=== PATIENT | female | born 1965 | race Caucasian/White ===

== ENCOUNTER 2016-05-20 05:07 | Emergency (ER) | payer OTHER ==
--- NOTE | 2016-05-20 08:59 | ED CLINICAL REPORT ---
Clinical Report - Physicians/Mid Levels [facility] [address] [place] [address] 05/20/2016 5:08 Patient: FARIDA DODGE Time Seen: 05:32 May 20 2016. Arrived- By ambulance. Historian- patient and EMS personnel. CPT: ER phys charges level 3 (#[id number]). HISTORY OF PRESENT ILLNESS Chief Complaint: CHRONIC BACK PAIN. 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 It is described as being moderate in degree and in the area of the left lower lumbar spine and left gluteus. The quality is noted to be sharp, aching, "pain" and similar to prior episodes. No bladder dysfunction, bowel dysfunction, sensory loss or motor loss. Patient denies an injury. No other injury. Similar symptoms previously: Several times, milder. REVIEW OF SYSTEMS No fever, chills, eye irritation, difficulty with urination or urinary frequency. No hematuria, skin rash, sore throat, cough or difficulty breathing. No chest pain, abdominal pain, nausea, vomiting or diarrhea. No black stools. All systems otherwise negative, except as recorded above. PAST HISTORY Has had back injury. She has had many prior episodes of back pain (Has seen PCP and x-ray done showing DJD but no MRI or CT scan at this time yest). Previously diagnosed as degenerative disc disease. No previous back surgery. Medications: None. None. Allergies: None. Tetanus Immune Globulin. SOCIAL HISTORY Heavy tobacco smoker (cigarette)- 1 pack per day. History of drug use: methamphetamines. ADDITIONAL NOTES The nursing notes have been reviewed. PHYSICAL EXAM Vital Signs: 05/20/2016 05:09 BP: 171/98. HR: 94. RR: 18. O2 saturation: 100%. Temp: 97.8 F. Pain level now: 10/10. Appearance: Alert. No acute distress. HEENT: Normal external inspection. ENT: Pharynx normal. Neck: Normal inspection. Neck nontender. Painless ROM. CVS: Heart sounds normal. Pulses normal. Respiratory: No respiratory distress. Breath sounds normal. Abdomen: Soft and nontender. Bowel sounds normal. Back: Soft tissue tenderness in the right lower and left lower lumbar area. Skin: Skin warm. Normal skin color. No rash. Extremities: Extremities exhibit normal ROM. Extremities nontender. Neuro: Oriented X 3. Mood/affect normal. No motor deficit. No sensory deficit. Reflexes normal. (No saddle paresthesias). PROGRESS AND PROCEDURES Course of Care: Toradol 60 mg IM Patient is stable. Symptoms better. Patient/family counseled. Disposition: Discharged. Condition: stable. CLINICAL IMPRESSION Acute left sided lumbar radiculopathy. No sensory loss or motor deficit. Substance abuse problems: abuse of opiates, methamphetamine and hallucinogens. INSTRUCTIONS Apply ice for 15-20 minutes three times a day for one days followed by moist heat. No strenuous activity. Prescription Medications: Skelaxin 800 mg: Take 1 orally every 6 hours as needed for muscle spasm. Dispense thirty (30). No refills. Substitution is permissible. OTC Medications: Motrin (available over the counter): take according to label instructions. Understanding of the discharge instructions verbalized by patient. Follow-up with: [facility], , , [address], , [place], [id number] Follow up in three days. Call for the next available appointment. (Electronically signed by Barrera Fagan MD 05/23/2016 12:18) Adddottie for FARIDA DODGE VisitID: [id number] Date: 05/20/2016 05/20/2016 10:23 PT.given bus pass and a warm blanket. (Electronically signed by Felicity Castanon1 - 05/20/2016 10:23)
--- NOTE | 2016-05-20 08:59 | ED ORDER SUMMARY ---
..... Patient: FARIDA DODGE OrderSheet [facility] VisitID: [id number] [place] [address] 50y, F Registration Date/Time: 05/20/2016 ORDER SHEET Weight: 86.1 kg (stated) Allergies: None, Tetanus Immune Globulin GENERAL ORDERS: Urine Drug Screen Urgent (06:03 05/20/2016 Ana Nelson.NQuan verbal order read back to Hany GONSALEZ) (Ack 6:05 Everton GARNER Manager Utilization) (7:01 Gilbert Nelson.NQuan) MEDICATION ORDERS: Toradol IM 60 mg (NOW) (05:35 05/20/2016 Hany GONSALEZ) (Ack 5:38 Ana R.N.) (5:52 Ana R.N.) Ativan IM 1.5 mg (NOW) (05:36 05/20/2016 Hany GONSALEZ) (Ack 5:38 Ana R.N.) (Cancelled: Other8:58 Hany GONSALEZ) IV FLUIDS: ORDER SHEET NOTES: [Electronically signed by Marcell Bunch R.N. (18:32 05/20/2016)] [Electronically signed by Barrera Fagan MD (12:18 05/23/2016)] [Electronically locked/signed by Marcell Bunch R.N. (18:32 05/20/2016)]
--- NOTE | 2016-05-20 08:59 | ED NURSING NOTES ---
Clinical Report - Nurses [facility] [place] [address] 05/20/2016 5:08 Patient: FARIDA DODGE TRIAGE Triage time 05:09. Acuity: LEVEL 4. Chief Complaint: BACK PAIN. Alert. SEPSIS SCREEN: Sepsis Screen: negative. Negative (no infection suspected/documented). --05:12 Pj Kohli R.N. 05:09 05/20/16. BP: 171/98. HR: 94 (normal rate). RR: 18 (regular, unlabored and normal). O2 saturation: 100% on room air. Temp: 97.8 F (oral). Pain level now: 10/10. Additional comments: Pt is frazzled, telling story about "hold up at motel" to police. . --05:12 Pj Kohli R.N. Weight: 86.1 kg stated. Height/Length: 66 inches Per Patient. BMI: 30.7. --05:08 Marcell Bunch R.N. Medications None. --05:12 Pj Kohli R.N. None. --05:13 Pj Kohli R.N. Medication/allergy information source: the patient. --05:12 Pj Kohli R.N. Allergies None. Tetanus Immune Globulin. --05:13 Pj Kohli R.N. The following entry was struck by Pj Kohli R.N., 05:14 (05/20/16) Reason - other. <<STRICKEN ENTRY-- No Known Drug Allergy. --05:12 Pj Kohli R.N. --END STRIKE>>. History Arrived by EMS. Historian: patient. Unaccompanied. Primary physician (Gayle Saucedo at [facility]). Onset. (about 2 days ago). No history of recent trauma. Treatment FLORAL ASSOCIATE: None. SOCIAL HX: Heavy tobacco smoker (cigarette)- less than 1 pack per day. 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 The patient has not traveled outside the [place] The patient was not exposed to MRSA. No infectious disease exposure. ABUSE ASSESSMENT: Abuse assessment: The patient was asked "Do you feel safe in your home?" and "Has anyone hurt you or threatened to hurt you?". No report of abuse. SELF HARM ASSESSMENT: A self harm assessment was performed. The patient answered "no" to the question "Do you have thoughts of harming or killing yourself?" and "Have you recently had thoughts about harming or killing others?". FALL RISK ASSESSMENT: Fall risk assessment completed. No fall risk identified. NUTRITIONAL RISK ASSESSMENT: The nutritional risk assessment revealed no deficiencies. FUNCTIONAL ASSESSMENT: Functional assessment: no impairments noted. LEARNING NEEDS ASSESSMENT: The learning needs assessment revealed no barriers. SKIN INTEGRITY ASSESSMENT: Skin integrity risk assessment completed. No skin integrity risk identified. --05:12 Pj Kohli R.N. PROBLEMS: Substance Abuse. Cellulitis. Abscess. Hepatitis. Hepatitis C carrier. Tubal ligation. --05:14 Pj Kohli R.N. ADDITIONAL SURGERIES: . Tubal Ligation. --05:14 Pj Kohli R.N. Assessment GENERAL / NEURO / PSYCH: Alert. Oriented X 4. [place] Coma Scale: 15- eyes open spontaneously (4); best verbal response- oriented x 4 (5); best motor response- obeys commands (6). Patient appears calm and cooperative. RESPIRATORY: Respirations not labored. SKIN: Skin is warm and dry. --05:12 Pj Kohli R.N. Interventions ID band on patient. To treatment room. --05:12 Pj Kohli R.N. NURSING PROGRESS NOTES The initial plan of care for this patient has been created This plan of care was discussed with the patient. Reassurance given to the patient. Two patient identifiers checked. Call light placed in reach. Side rails up x 1. Bed placed in lowest position. Brakes of bed on. Patient ready for evaluation- ED physician notified. --05:13 Pj Kohli R.N. 05:52 05/20/2016 Toradol (Ketorolac Tromethamine) IM 60 mg given. Given in the left ventral gluteus. Allergies verified and confirmed 5 rights. --05:52 Pj Kohli R.N. 06:54 Patient assisted to restroom via wc. --07:00 Surinder Rodriguez R.N. 06:58. Patient ID band checked for patient name and birthdate: patient confirmed. Clean catch urine collected with return of lachelle-colored clear urine; sample sent to lab for urinalysis. Specimen labeled in the presence of the patient. --07:01 Surinder Rodriguez R.N. 07:30 05/20/16. Patient informed about reason for wait and about plan of care. --07:30 Marcell Bunch R.N. 07:33 05/20/16. --07:33 Marcell Bunch R.N. 07:33 05/20/16. BP: 137/91. HR: 92. RR: 18. O2 saturation: 100% on room air. Pain level now: 01/21. --07:33 Marcell Bunch R.N. 08:38 05/20/16. ( Gave pt snack, juice and water. Pt is sleeping.). --08:38 Marcell Bunch R.N. DISPOSITION / DISCHARGE 09:14 05/20/16. Condition at departure: improved. The goals identified in the patient's plan of care were met. No learning barriers present. Discharge instructions provided and reviewed with the patient. Reviewed warnings. Reviewed medication(s). Treatments reviewed. Patient verbalized understanding. Written instructions provided in Romansh. The patient was discharged by the physician. She was discharged home and unaccompanied at time of discharge. She left the Emergency Department ambulatory and via private vehicle. FALL RISK ASSESSMENT: Fall risk assessment completed. No fall risk identified. --09:15 Marcell Bunch R.N. 09:14 05/20/16. BP: 166/88. HR: 72. RR: 14. O2 saturation: 100% on room air. Temp: 98.2 F (oral). --09:15 Marcell Bunch R.N. 09:15 05/20/16. Departure time: 09:15. --09:15 Marcell Bunch R.N. 09:35 05/20/16. ( Pt trying to coordinate ride). --09:35 Marcell Bunch R.N. Locked/Released at 05/20/2016 18:32 by Marcell Bunch R.N.
--- NOTE | 2016-05-20 08:59 | ED CLINICAL REPORT ---
Clinical Report - Physicians/Mid Levels [facility] [address] [place] [address] 05/20/2016 5:08 Patient: FARIDA DODGE Time Seen: 05:32 May 20 2016. Arrived- By ambulance. Historian- patient and EMS personnel. CPT: ER phys charges level 3 (#[id number]). HISTORY OF PRESENT ILLNESS Chief Complaint: CHRONIC BACK PAIN. Onset- about 1 months DEPUTY K 9 and it is still present (worse today primarily over a point on the left buttock.). It is described as being moderate in degree and in the area of the left lower lumbar spine and left gluteus. The quality is noted to be sharp, aching, "pain" and similar to prior episodes. No bladder dysfunction, bowel dysfunction, sensory loss or motor loss. Patient denies an injury. No other injury. Similar symptoms previously: Several times, milder. REVIEW OF SYSTEMS No fever, chills, eye irritation, difficulty with urination or urinary frequency. No hematuria, skin rash, sore throat, cough or difficulty breathing. No chest pain, abdominal pain, nausea, vomiting or diarrhea. No black stools. All systems otherwise negative, except as recorded above. PAST HISTORY Has had back injury. She has had many prior episodes of back pain (Has seen PCP and x-ray done showing DJD but no MRI or CT scan at this time yest). Previously diagnosed as degenerative disc disease. No previous back surgery. Medications: None. None. Allergies: None. Tetanus Immune Globulin. SOCIAL HISTORY Heavy tobacco smoker (cigarette)- 1 pack per day. History of drug use: methamphetamines. ADDITIONAL NOTES The nursing notes have been reviewed. PHYSICAL EXAM Vital Signs: 05/20/2016 05:09 BP: 171/98. HR: 94. RR: 18. O2 saturation: 100%. Temp: 97.8 F. Pain level now: 10/10. Appearance: Alert. No acute distress. HEENT: Normal external inspection. ENT: Pharynx normal. Neck: Normal inspection. Neck nontender. Painless ROM. CVS: Heart sounds normal. Pulses normal. Respiratory: No respiratory distress. Breath sounds normal. Abdomen: Soft and nontender. Bowel sounds normal. Back: Soft tissue tenderness in the right lower and left lower lumbar area. Skin: Skin warm. Normal skin color. No rash. Extremities: Extremities exhibit normal ROM. Extremities nontender. Neuro: Oriented X 3. Mood/affect normal. No motor deficit. No sensory deficit. Reflexes normal. (No saddle paresthesias). PROGRESS AND PROCEDURES Course of Care: Toradol 60 mg IM Patient is stable. Symptoms better. Patient/family counseled. Disposition: Discharged. Condition: stable. CLINICAL IMPRESSION Acute left sided lumbar radiculopathy. No sensory loss or motor deficit. Substance abuse problems: abuse of opiates, methamphetamine and hallucinogens. INSTRUCTIONS Apply ice for 15-20 minutes three times a day for one days followed by moist heat. No strenuous activity. Prescription Medications: Skelaxin 800 mg: Take 1 orally every 6 hours as needed for muscle spasm. Dispense thirty (30). No refills. Substitution is permissible. OTC Medications: Motrin (available over the counter): take according to label instructions. Understanding of the discharge instructions verbalized by patient. Follow-up with: [facility], , , [address], , [place], [id number] Follow up in three days. Call for the next available appointment. (Electronically signed by Barrera Fagan MD 05/23/2016 12:18) Adddottie for FARIDA DODGE VisitID: [id number] Date: 05/20/2016 05/20/2016 10:23 PT.given bus pass and a warm blanket. (Electronically signed by Felicity Castanon1 - 05/20/2016 10:23)
--- NOTE | 2016-05-20 08:59 | ED ORDER SUMMARY ---
..... Patient: FARIDA DODGE OrderSheet [facility] VisitID: [id number] [place] [address] 50y, F Registration Date/Time: 05/20/2016 ORDER SHEET Weight: 86.1 kg (stated) Allergies: None, Tetanus Immune Globulin GENERAL ORDERS: Urine Drug Screen Urgent (06:03 05/20/2016 Ana Nelson.NQuan verbal order read back to Hany GONSALEZ) (Ack 6:05 Everton GARNER Activities Aide) (7:01 Gilbert Nelson.NQuan) MEDICATION ORDERS: Toradol IM 60 mg (NOW) (05:35 05/20/2016 Hany GONSALEZ) (Ack 5:38 Ana R.N.) (5:52 Ana R.N.) Ativan IM 1.5 mg (NOW) (05:36 05/20/2016 Hany GONSALZE) (Ack 5:38 Ana R.N.) (Cancelled: Other8:58 Hany GONSALEZ) IV FLUIDS: ORDER SHEET NOTES: [Electronically signed by Marcell Bunch R.N. (18:32 05/20/2016)] [Electronically signed by Barrera Fagan MD (12:18 05/23/2016)] [Electronically locked/signed by Marcell Bunch R.N. (18:32 05/20/2016)]
--- NOTE | 2016-05-23 12:18 | ED MAR SUMMARY ---
..... Medication Administration Record [facility] [address] [place] [address] Patient: FARIDA DODGE Visit ID: [id number] 50y, F Weight: 86.1 kg Height/Length: 66 in BMI: 30.7 ALLERGIES: None, Tetanus Immune Globulin Given 05:52 05/20/2016 Pj Kohli, RQuanNQuan Medication Administered: TORADOL [IM] (KETOROLAC TROMETHAMINE), Dose: 60 mg IM. Medication Ordered: Toradol IM 60 mg (NOW).
--- NOTE | 2016-05-23 12:18 | ED DISCHARGE INSTRUCTIONS ---
Patient: FARIDA DODGE General Instructions [facility] VisitID: [id number] [address], [place] [address] 50y, F Registration Date/Time: 05/20/2016 Acute left sided lumbar radiculopathy. No sensory loss or motor deficit. Substance abuse problems: abuse of opiates, methamphetamine and hallucinogens. INSTRUCTIONS Apply ice for 15-20 minutes three times a day for one days followed by moist heat. No strenuous activity. Prescription Medications: Skelaxin 800 mg: Take 1 orally every 6 hours as needed for muscle spasm. Dispense thirty (30). No refills. Substitution is permissible. OTC Medications: Motrin (available over the counter): take according to label instructions. Understanding of the discharge instructions verbalized by patient. [facility]: [facility], , , [address], , [place], [address] Follow up in three days. Call for the next available appointment. ADDITIONAL INFORMATION Sciatica Sciatica ("Lumbar Radiculopathy") causes a pain that spreads from the lower back down into the buttock, hip and leg. Sometimes leg pain can occur without any back pain. Sciatica is due to irritation or pressure on a spinal nerve as it comes out of the spinal canal. This is most often due to a bulge or rupture of a nearby spinal disk (the cartilage cushion between each spinal bone), which presses on a nearby nerve. Other causes include spinal stenosis (narrowing of the spinal canal) and spasm of the pyriform muscle (a muscle in the buttocks that the sciatic nerve passes through). Sciatica may begin after a sudden twisting/bending force (such as in a car accident), or sometimes after a simple awkward movement. In either case, muscle spasm is commonly present and contributes to the pain. The diagnosis of sciatica is made from the symptoms and physical exam. Unless you had a physical injury (such as a car accident or fall), X-rays are usually not ordered for the initial evaluation of sciatica because the nerves and disks cannot be seen on an x-ray. If signs of a compressed nerve are present (for example, loss of tendon reflex or strength in the leg), an MRI (magnetic resonance imaging) scan will need to be scheduled as an outpatient. Most sciatica (80-90%) gets better with medicine, exercise, physical therapy. If symptoms continue after at least three months of medical treatment, surgery may be considered. Home Care: You may need to stay in bed the first few days. But, as soon as possible, begin sitting or walking to avoid problems with prolonged bed rest. When in bed, try to find a position of comfort. A firm mattress is best. Try lying flat on your back with pillows under your knees. You can also try lying on your side with your knees bent up towards your chest and a pillow between your knees. Avoid prolonged sitting. This puts more stress on the lower back than standing or walking. Some persons find relief with heat (hot shower, hot bath or heating pad) and massage, while others prefer cold packs (crushed or cubed ice in a plastic bag, wrapped in a towel). Try both and use the method that feels best for 20 minutes several times a day. You may use acetaminophen (Tylenol) or ibuprofen (Motrin, Advil) to control pain, unless another pain medicine was prescribed. [ NOTE: If you have chronic liver or kidney disease or ever had a stomach ulcer or GI bleeding, talk with your doctor before using these medicines.] Be aware of safe lifting methods and do not lift anything over 15 pounds until all the pain is gone. Follow Up with your doctor or this facility if your symptoms do not start to improve after one week. Physical therapy or further testing may be needed. [NOTE: If X-rays were taken, they will be reviewed by a radiologist. You will be notified of any new findings that may affect your care.] Get Prompt Medical Attention if any of the following occur: Pain becomes worse, not controlled by the prescribed medicine Weakness or numbness in one or both legs Numbness in the groin, genital area Loss of bowel or bladder control You have been given the following additional information: Back Pain W/ Sciatica No strenuous activity. (Electronically signed by Barrera Fagan MD 05/23/2016 12:18)
--- NOTE | 2016-05-23 12:18 | ED MED RECONCILIATION SUMMARY ---
Patient: FARIDA DODGE Medication Reconciliation Report [facility] VisitID: [id number] [address] [place] [address] 50y, F Registration Date/Time: 05/20/2016 Weight: 86.1 kg Height/Length: 66 in. BMI: 30.7 ALLERGIES: None, Tetanus Immune Globulin The patient's Home Medications are listed below: NONE. The source(s) of the original Home Medication information: patient The following Medications were given to the patient in the Emergency Department: Toradol [IM] IM 60 mg, administered: 05/20/2016 5:52:00 AM The following Medications were prescribed to the patient: Motrin (available over the counter): take according to label instructions. -- Barrera Fagan MD Skelaxin 800 mg: Take 1 orally every 6 hours as needed for muscle spasm. Dispense thirty (30). No refills. Substitution is permissible. -- Barrera Fagan MD
--- NOTE | 2016-05-23 12:18 | ED MAR SUMMARY ---
..... Medication Administration Record [facility] [address] [place] [address] Patient: FARIDA DODGE Visit ID: [id number] 50y, F Weight: 86.1 kg Height/Length: 66 in BMI: 30.7 ALLERGIES: None, Tetanus Immune Globulin Given 05:52 05/20/2016 Pj Kohli, RQuanNQuan Medication Administered: TORADOL [IM] (KETOROLAC TROMETHAMINE), Dose: 60 mg IM. Medication Ordered: Toradol IM 60 mg (NOW).
--- NOTE | 2016-05-23 12:18 | ED MED RECONCILIATION SUMMARY ---
Patient: FARIDA DODGE Medication Reconciliation Report [facility] VisitID: [id number] [address] [place] [address] 50y, F Registration Date/Time: 05/20/2016 Weight: 86.1 kg Height/Length: 66 in. BMI: 30.7 ALLERGIES: None, Tetanus Immune Globulin The patient's Home Medications are listed below: NONE. The source(s) of the original Home Medication information: patient The following Medications were given to the patient in the Emergency Department: Toradol [IM] IM 60 mg, administered: 05/20/2016 5:52:00 AM The following Medications were prescribed to the patient: Motrin (available over the counter): take according to label instructions. -- Barrera Fagan MD Skelaxin 800 mg: Take 1 orally every 6 hours as needed for muscle spasm. Dispense thirty (30). No refills. Substitution is permissible. -- Barrera Fagan MD
--- NOTE | 2016-05-23 12:18 | ED DISCHARGE INSTRUCTIONS ---
Patient: FARIDA DODGE General Instructions [facility] VisitID: [id number] [address], [place] [address] 50y, F Registration Date/Time: 05/20/2016 Acute left sided lumbar radiculopathy. No sensory loss or motor deficit. Substance abuse problems: abuse of opiates, methamphetamine and hallucinogens. INSTRUCTIONS Apply ice for 15-20 minutes three times a day for one days followed by moist heat. No strenuous activity. Prescription Medications: Skelaxin 800 mg: Take 1 orally every 6 hours as needed for muscle spasm. Dispense thirty (30). No refills. Substitution is permissible. OTC Medications: Motrin (available over the counter): take according to label instructions. Understanding of the discharge instructions verbalized by patient. Follow-up with: [facility], , , [address], , [place], [address] Follow up in three days. Call for the next available appointment. ADDITIONAL INFORMATION Sciatica Sciatica ("Lumbar Radiculopathy") causes a pain that spreads from the lower back down into the buttock, hip and leg. Sometimes leg pain can occur without any back pain. Sciatica is due to irritation or pressure on a spinal nerve as it comes out of the spinal canal. This is most often due to a bulge or rupture of a nearby spinal disk (the cartilage cushion between each spinal bone), which presses on a nearby nerve. Other causes include spinal stenosis (narrowing of the spinal canal) and spasm of the pyriform muscle (a muscle in the buttocks that the sciatic nerve passes through). Sciatica may begin after a sudden twisting/bending force (such as in a car accident), or sometimes after a simple awkward movement. In either case, muscle spasm is commonly present and contributes to the pain. The diagnosis of sciatica is made from the symptoms and physical exam. Unless you had a physical injury (such as a car accident or fall), X-rays are usually not ordered for the initial evaluation of sciatica because the nerves and disks cannot be seen on an x-ray. If signs of a compressed nerve are present (for example, loss of tendon reflex or strength in the leg), an MRI (magnetic resonance imaging) scan will need to be scheduled as an outpatient. Most sciatica (80-90%) gets better with medicine, exercise, physical therapy. If symptoms continue after at least three months of medical treatment, surgery may be considered. Home Care: You may need to stay in bed the first few days. But, as soon as possible, begin sitting or walking to avoid problems with prolonged bed rest. When in bed, try to find a position of comfort. A firm mattress is best. Try lying flat on your back with pillows under your knees. You can also try lying on your side with your knees bent up towards your chest and a pillow between your knees. Avoid prolonged sitting. This puts more stress on the lower back than standing or walking. Some persons find relief with heat (hot shower, hot bath or heating pad) and massage, while others prefer cold packs (crushed or cubed ice in a plastic bag, wrapped in a towel). Try both and use the method that feels best for 20 minutes several times a day. You may use acetaminophen (Tylenol) or ibuprofen (Motrin, Advil) to control pain, unless another pain medicine was prescribed. [ NOTE: If you have chronic liver or kidney disease or ever had a stomach ulcer or GI bleeding, talk with your doctor before using these medicines.] Be aware of safe lifting methods and do not lift anything over 15 pounds until all the pain is gone. Follow Up with your doctor or this facility if your symptoms do not start to improve after one week. Physical therapy or further testing may be needed. [NOTE: If X-rays were taken, they will be reviewed by a radiologist. You will be notified of any new findings that may affect your care.] Get Prompt Medical Attention if any of the following occur: Pain becomes worse, not controlled by the prescribed medicine Weakness or numbness in one or both legs Numbness in the groin, genital area Loss of bowel or bladder control You have been given the following additional information: Back Pain W/ Sciatica No strenuous activity. (Electronically signed by Barrera Fagan MD 05/23/2016 12:18)
== END 2016-05-20 09:15 | disposition home or self-care (01) ==
LOC: ED SRH 05:07
DX: M54.16 Radiculopathy, lumbar region (principal); F11.10 Opioid abuse, uncomplicated; F15.10 Other stimulant abuse, uncomplicated; F16.10 Hallucinogen abuse, uncomplicated; F17.210 Nicotine dependence, cigarettes, uncomplicated
CPT/HCPCS: 92760; 92761; 92762; 92763; 92764; 92765; 92766; 92767